=== PATIENT | male | born 1960 | race Caucasian/White ===

== ENCOUNTER 2016-08-17 20:47 | Emergency (ER) | payer MEDICARE, MEDICAID, OTHER ==
[2016-08-17] MEDS ORDERED: Aspirin 81 MG Tab.Chew PO ONE (21:35)
--- NOTE | 2016-08-17 21:35 | EDM.PDOC ---
ED HPI Trauma - General Chief Complaint: Upper Extremity Injury/Pain Stated Complaint: PT HAS UPPER BODY PAIN Time Seen by Provider: 08/17/16 20:59 Source: Reports: Patient History Limitations: Reports: No limitations - History of Present Illness INITIAL COMMENTS - FREE TEXT/NARRATIVE: HISTORY AND PHYSICAL: History of present illness: [56-year-old male with a history of chronic gastroesophageal reflux disease which patient states he got his "nerve cut "to reduce the acid, is with a history of tobacco abuse and hypertension with which he is noncompliant with his propranolol. Patient now presents emergent [facility] complaining of upper back pain earlier today which is typical for his chronic upper back pain. Patient was uncomfortable and stated is worse with movement palpation and movement of his neck he has no headache or stiff neck no fevers chills sweats or shaking chills. Patient has no productive cough peptic patient decided to come to the emergency department he perceived that the back pain "wrapped around the front," radiating to his chest. Patient states the pain is worse with taking a deep breath and movement. He says it is sometimes sharp. He denies exertional chest pain nausea vomiting diaphoresis or shortness of air beyond his baseline is a smoker. Less stress test was 1998 which was unremarkable. She states his pain is an " of 9. " He does not have a history of high cholesterol, diabetes, or family history of coronary artery disease Review of systems: As per history of present illness and below otherwise all systems reviewed and negative. Past medical history: As per history of present illness and as reviewed below otherwise noncontributory. Surgical history: As per history of present illness and as reviewed below otherwise noncontributory. Social history: No reported history of drug or alcohol abuse. Family history: As per history of present illness and as reviewed below otherwise noncontributory. Physical exam: HEENT: Atraumatic, normocephalic, pupils reactive, negative for conjunctival pallor or scleral icterus, mucous membranes moist, throat clear, neck supple, nontender, trachea midline. Lungs: Clear to auscultation, breath sounds equal bilaterally, chest nontender. Heart: S1S2, regular, negative for clicks, rubs, or JVD. Abdomen: Soft, nondistended, nontender. Negative for masses or hepatosplenomegaly. Negative for costovertebral tenderness. Pelvis: Stable nontender. Genitourinary: Deferred. Rectal: Deferred. Extremities: Atraumatic, negative for cords or calf pain. Neurovascular unremarkable. Neuro: Awake, alert, oriented. Cranial nerves II through XII unremarkable. Cerebellum unremarkable. Motor and sensory unremarkable throughout. Exam nonfocal. Diagnostics: [] Therapeutics: [] Impression: [] Plan: [] Definitive disposition and diagnosis as appropriate pending reevaluation and review of above. Allergies/ADRs: Allergies codeine Allergy (Verified 01/11/15 08:48) Cannot Remember Home Medications: Ambulatory Orders Diclofenac Sodium [Voltaren] 1 tab PO ASDIRECTED 10/02/14 [Confirmed 01/11/15] Allopurinol [Zyloprim] 100 mg PO DAILY 08/17/16 [Confirmed 08/17/16] Carisoprodol 1 tab PO TID 08/17/16 [Confirmed 08/17/16] Colchicine 0.6 mg PO DAILY 08/17/16 [Confirmed 08/17/16] Past Medical History - Past Health History Medical/Surgical History: Denies Medical/Surgical History HEENT History: Reports: Other (see below) Other HEENT History: on eye glasses Cardiovascular History: Reports: None Respiratory History: Reports: None Gastrointestinal History: Reports: None, Other (see below) Other Gastrointestinal History: perforated ulcer Genitourinary History: Reports: None Musculoskeletal History: Reports: Back pain, chronic, Gout Neurological History: Reports: None Psychiatric History: Reports: Anxiety, Depression Endocrine/Metabolic History: Reports: None Hematologic History: Reports: None Immunologic History: Reports: None Oncologic (Cancer) History: Reports: None Dermatologic History: Reports: None - Infectious Disease History Infectious Disease History: Reports: None Social & Family History - Family History Family Medical History: Noncontributory - Tobacco Use Smoking Status *Q: Current Some Day Smoker Years of Tobacco use: 30 Packs/Tins Daily: 1 - Caffeine Use Caffeine Use: Reports: Soda - Alcohol Use Days Per Week of Alcohol Use: 0 - Recreational Drug Use Recreational Drug Use: No Review of Systems - Review of Systems Review Of Systems: See Below (Per history of present illness) Trauma Exam - Physical Exam Exam: See Below (Per history of present illness) Course - Vital Signs Text/Narrative:: Signs and symptoms consistent with exacerbation of chronic back pain with tenderness of the upper back reproducible with palpation. Patient also has tenderness of the back of both shoulders and posterior bilateral neck. No bony tenderness or midline tenderness of the C-spine. He is nonfocal neurologically and has no evidence of radiculopathy of the upper extremities. Patient clearly describing a pleuritic component to the "chest pain "that radiated from his back which did not appear until he was on his way to the emergency department. he has no infectious prodrome. Patient is well-appearing. EKG with normal sinus rhythm at 74 normal axis no STEMI. His EKG is unremarkable. CTA of the chest unremarkable except for 5 pulmonary nodules the largest of which is 6 mm. Patient aware of critical importance of followup for repeat imaging which can your pressure device primary care DrFilippo to rule out evolving cancer. Remainder of full workup unremarkable and patient's clinical history is completely consistent with pleurisy superimposed on his chronic upper back pain. Patient and agree with outpatient followup. Strict return precautions given Last Recorded V/S: Last Vital Signs Temp 36.2 C 08/18/16 01:28 Pulse 78 08/18/16 01:28 Resp 16 08/18/16 01:28 BP 151/88 H 08/18/16 01:28 Pulse Ox 98 08/18/16 01:28 - Orders/Labs/Meds Orders: Active Orders 24 hr Category Date Time Status EKG 12 Lead [EKG Documentation Completion] [RC] STAT Care 08/17/16 21:29 Active CTA Chest W WO Contrast [Ang Chest] [CT] Stat Exams 08/17/16 22:40 Taken Chest 1V Frontal [CR] Stat Exams 08/17/16 21:30 Taken Labs: Laboratory Tests 08/17/16 08/17/16 08/17/16 Range/Units 21:43 21:43 21:43 Hgb 14.0 (13.0-17.0) g/dL Hct 42.6 (38.0-50.0) % Sodium 143 (136-146) mmol/L Potassium 4.0 (3.5-5.1) mmol/L Chloride 109 (98-110) mmol/L Carbon Dioxide 28 (21-31) mmol/L BUN 16 (6.0-23.0) mg/dL Creatinine 1.0 (0.6-1.5) mg/dL Est Cr Clr Drug Dosing 85.17 mL/min Estimated GFR (MDRD) > 60.0 ml/min Glucose 111 H (60-110) mg/dL Calcium 8.9 (8.8-10.8) mg/dL Total Bilirubin 0.4 (0.1-1.5) mg/dL AST 18 (5-40) IU/L ALT 12 (8-54) IU/L Alkaline Phosphatase 76 (40-150) Troponin I < 0.10 (0.0-0.29) NG/ML Total Protein 7.0 (6.0-8.0) g/dL Albumin 4.0 (3.5-5.0) g/dL Globulin 3.0 (2.0-3.5) g/dL Albumin/Globulin Ratio 1.3 (1.3-2.8) Meds: Medications Discontinued Medications Generic Name Dose Route Start Last Admin Trade Name Freq PRN Reason Stop Dose Admin Aspirin 324 mg 08/17/16 21:35 08/17/16 21:49 Aspirin PO 08/17/16 21:36 324 mg ONETIME ONE Administration Al Hydroxide/Mg Hydroxide 15 0 ml 08/17/16 23:06 08/17/16 23:24 ml/ Lidocaine HCl 5 ml PO 08/17/16 23:07 1 each ONETIME ONE Administration Iopamidol 50 ml 08/17/16 22:55 08/18/16 00:07 Isovue-370 (76%) IV 08/17/16 22:56 50 ml ONETIME STA Administration Departure - Departure Time of Disposition: 00:57 Disposition: Home, Self-Care 01 Condition: good Clinical Impression: Upper back pain, chronic, Pleuritic chest pain, Gastritis, Pulmonary nodules/ lesions, multiple Instructions: Gastritis, Adult, [id number], Back Pain, Adult, Nonspecific Chest Pain Referrals: PCP,None [Primary Care Provider] - Forms: ED Department Discharge Additional Instructions: Your pain today is consistent with an attack of your chronic back pain combined with pleuritic chest pain. Pleuritic pain is from irritation of the lung lining. Pleurisy is defined as sharp pain typically stabbing and momentary with deep inspiration. Your CT angiogram of the chest was unremarkable and showed no blood clot in your lung or aortic abnormality. Your cardiac workup was negative today however, since you have not had a stress test since 1998, it is recommended that you follow up with your DrFilippo to arrange an elective outpatient stress test as soon as possible. Continue medications for your gastritis and reflux as previously prescribed and take ibuprofen 800 mg every 6 hours as needed for your upper back pain and pleurisy. You can also add Tylenol to this regimen as needed. Follow up with your doctor in the morning and return immediately for new severe or worsening symptoms Your CAT scan of the chest shows incidental findings and a 5 small pulmonary nodules. The largest of these is 6 mm. Follow up with your Dr. to discuss the specifics of this result and to arrange repeat imaging at the appropriate time frame to rule out an evolving mass in the possibility of cancer. - My Orders Last 24 Hours: My Active Orders 08/17/16 21:29 EKG 12 Lead [EKG Documentation Completion] [RC] STAT 08/17/16 21:30 Chest 1V Frontal [CR] Stat 08/17/16 22:40 CTA Chest W WO Contrast [Ang Chest] [CT] Stat - Assessment/Plan Last 24 Hours: My Active Orders 08/17/16 21:29 EKG 12 Lead [EKG Documentation Completion] [RC] STAT 08/17/16 21:30 Chest 1V Frontal [CR] Stat 08/17/16 22:40 CTA Chest W WO Contrast [Ang Chest] [CT] Stat
[2016-08-17 22:12] LABS: CHLORIDE,CL 109 mmol/L (98-110); SODIUM,NA 143 mmol/L (136-146)
[2016-08-17] MEDS ORDERED: Iopamidol 755 MG/ML 50 ML Bottle IV STA (22:55)
[2016-08-17] MEDS ORDERED: Alum Hydrox/Mag Hydrox/Simeth 15 ML, Lidocaine 2% 5 ML PO ONE ×2 (23:06)
[2016-08-18 01:35] VITALS: BP 151/88
--- NOTE | 2016-08-18 14:54 | CR ---
EXAM DATE: 08/17/16 PATIENT'S AGE: 56 Patient: FRANCO TENA Facility: [place], [place] Site . Site : 1960 Study: XRay Chest [id number]/21/2017 10:03:40 PM Ordering Physician: Nitin Sarkar Final Report: Indication: Chest pain Technique: Chest 1 view. Comparison: July 28, 2013 Findings: Cardiovascular and mediastinum: Heart size and vasculature are normal in caliber and appearance. Mediastinum is within normal limits. Lungs and pleural space: Lungs are clear. No sign of infiltrate or mass. No sign of pleural effusion. No pneumothorax. Bones and soft tissues: Epigastric surgical clips noted. Impression: No sign of acute disease. Dictated by Felicia Teresa MD @ Aug 17 2016 10:20PM (Electronic Signature) Report Signed by Proxy and Original Signed Document filed in the Medical Record. [facility]
--- NOTE | 2016-08-18 14:56 | CT ---
EXAM DATE: 08/17/16 PATIENT'S AGE: 56 Patient: FRANCO TENA Facility: [place], [place] Site . Site : 1960 Study: CT Chest Angio [id number]/22/2017 12:07:06 AM Ordering Physician: Nitin Final Report: INDICATION: Pleuritic chest pain TECHNIQUE: CT chest pulmonary PE protocol acquired with 50 cc IV contrast. COMPARISON: Chest radiograph from the same date FINDINGS: Cardiovascular structures: Normal vascular enhancement of the pulmonary arteries , no sign of pulmonary embolism. Heart size is normal. No sign of aneurysm or dissection in the thoracic aorta. Mediastinum and tate: No mass or adenopathy. Lungs: Minimal emphysematous changes. 0.2 cm pulmonary nodule in the left lower lobe, best seen on image 137 series 401 0.6 cm pulmonary nodule right upper lobe best seen on image 86 series 401 0.5 centimeter right upper lobe pulmonary nodule, best seen on image 166 0.3 centimeter nodule right upper lobe best seen on image 196 0.4 centimeter pulmonary nodule right upper lobe best seen on image 243. Pleura and pericardium: No effusions. Chest wall and axilla: No mass or adenopathy. Upper abdomen: Surgical justin near the gastroesophageal junction. 1.9 cm left adrenal gland nodule. Cholelithiasis. Bones: No significant findings. IMPRESSION: 1. No pulmonary embolism, aortic dissection, or pneumonia. 2. Multiple pulmonary nodules. Correlation with any history of malignancy recommended. Followup per Fleischner society guidelines recommended, as listed below. 3. Left adrenal gland nodule. Adrenal CT or MRI is recommended for further characterization. 4. Cholelithiasis. FLEISCHNER SOCIETY GUIDELINES SOLID NODULES: LOW RISK nodule < 6 mm: No follow-up needed. nodule = 6-8 mm: Initial follow-up CT at 6-12 months and then at 18-24 months if no change. nodule < 8 mm: Follow-up CTs at around 3, 9, and 24 months. Dynamic contrast- enhanced CT, PET, and/or biopsy. MULTIPLE LOW RISK: nodule < 6 mm: No follow-up needed. nodule = 6-8 mm: CT at 3-6 months, then consider CT at 18-24 months. nodule < 8 mm: CT at 3-6 months, then consider CT at 18-24 months. HIGH RISK nodule < 6 mm: Follow-up at 12 months. If no change, no further imaging needed. nodule = 6-8 mm: Initial follow-up CT at 3-6 months and then at 9-12 and 24 months if no change. nodule < 8 mm: Follow-up CTs at around 3, 9, and 24 months. Dynamic contrast- enhanced CT, PET, and/or biopsy. MULTIPLE HIGH RISK: nodule < 6 mm: Optional CT at 12 months. nodule = 6-8 mm: CT at 3-6 months, then at 18-24 months. nodule < 8 mm: CT at 3-6 months, then at 18-24 months. Dictated by Felicia Teresa MD @ Aug 18 2016 12:07AM (Electronic Signature) Report Signed by Proxy and Original Signed Document filed in the Medical Record. [facility]
== END 2016-08-18 01:35 | disposition home or self-care (01) ==
LOC: MW.ED 20:47
DX: M54.6 Pain in thoracic spine (principal); F41.8 Other specified anxiety disorders; G89.29 Other chronic pain; R09.1 Pleurisy; K29.70 Gastritis, unspecified, without bleeding; R91.8 Other nonspecific abnormal finding of lung field; F17.200 Nicotine dependence, unspecified, uncomplicated; Z88.8 Allergy status to other drugs, medicaments and biological substances; Z79.899 Other long term (current) drug therapy
CPT/HCPCS: 36415; 71010; 71275; 80053; 84484; 85014; 85018; 93005; 99285; A9270; Q9967; 99284

== ENCOUNTER → 2016-10-15 | Outpatient (CLI) | payer MEDICARE, MEDICAID, OTHER ==
[~2016-10-15] MED LIST: Iopamidol 755 MG/ML 500 ML Multipack Bottle IVPUSH STA
--- NOTE | 2016-10-15 11:25 | CT ---
EXAMINATION: CT chest and abdomen with contrast HISTORY: Disorder of lung, adrenal nodule COMPARISON: CT chest dated 08/17/2016 lungs are clear without focal consolidation. TECHNIQUE: Axial CT images obtained through the chest and abdomen following the administration 100 m L of Isovue-370 in the right middle fossa. FINDINGS: No pleural effusion or pneumothorax. Mild dependent atelectasis. The most part the previou sly demonstrated pulmonary nodules have resolved. There is a small residual pleural-based nodule tyrel suring 4 mm within the right upper lobe, previously measuring 5 mm. There is a 2 mm nodule in the ri ght upper lobe on image 36 of series 302. The heart is normal in size without a pericardial effusion . Thoracic aorta is normal in caliber. The main and central pulmonary arteries are patent. The centr al airways are clear. Nonpathologically enlarged mediastinal and hilar lymph nodes are noted. No axi llary lymphadenopathy. Clips are noted near the gastroesophageal junction. The previously demonstrated left adrenal nodule measures less than 10 Hounsfield units and has washed out characteristics of an adenoma. There is a small nonobstructing stone within the lower pole of the left kidney. Cholelithiasis without evidence of cholecystitis. There is a tiny cyst within the left hepatic lobe. The spleen and pancreas otherw ise appear normal. No bulky retroperitoneal lymphadenopathy. No suspicious osseous amount is identified. IMPRESSION: 1. Several of the previously demonstrated pulmonary nodules have resolved. However a few small resid ual under noted. Follow-up in 12 months if the patient has known risk factors. 2. Left adrenal adenoma. 3. Cholelithiasis without evidence of cholecystitis. 4. Nonobstructing left nephrolithiasis.
== END ==
LOC: MW.DI 08:45
PROVIDERS: ATTEND Physician Assistant
DX: J98.4 Other disorders of lung (principal); R19.09 Other intra-abdominal and pelvic swelling, mass and lump; R91.8 Other nonspecific abnormal finding of lung field; D35.02 Benign neoplasm of left adrenal gland; K80.20 Calculus of gallbladder without cholecystitis without obstruction; N20.0 Calculus of kidney
CPT/HCPCS: 71260; 74160; Q9967

== ENCOUNTER 2017-02-01 19:08 | Emergency (ER) | payer MEDICARE, MEDICAID, OTHER ==
--- NOTE | 2017-02-01 20:46 | EDM.PDOC ---
ED HPI GENERAL MEDICAL PROBLEM - General Chief Complaint: Abdominal Pain Stated Complaint: LOWER LT ABDOMINAL PAIN Time Seen by Provider: 02/01/17 20:41 Source of Information: Reports: Patient. Denies: Family, Shelter Records History Limitations: Reports: No Limitations - History of Present Illness INITIAL COMMENTS - FREE TEXT/NARRATIVE: History of present illness: [56-year-old male presenting with complaints of left lower quadrant pain. Patient indicates that it has been off and on for the last few days for discomfort progressively worse and while self-limiting it gets to where he feels dizzy and he might pass out and/or nauseated to the point of feeling the need to vomit.] Review of systems: As per history of present illness and below otherwise all systems reviewed and negative. Past medical history: As per history of present illness and as reviewed below otherwise noncontributory. Surgical history: As per history of present illness and as reviewed below otherwise noncontributory. Social history: No reported history of drug or alcohol abuse. Family history: As per history of present illness and as reviewed below otherwise noncontributory. Physical exam: HEENT: Atraumatic, normocephalic, pupils reactive, negative for conjunctival pallor or scleral icterus, mucous membranes moist, throat clear, neck supple, nontender, trachea midline. Lungs: Clear to auscultation, breath sounds equal bilaterally, chest nontender. Heart: S1S2, regular, negative for clicks, rubs, or JVD. Abdomen: Soft, nondistended, nontender. Negative for masses or hepatosplenomegaly. Negative for costovertebral tenderness. Pelvis: Stable nontender. Genitourinary: Deferred. Rectal: Deferred. Extremities: Atraumatic, negative for cords or calf pain. Neurovascular unremarkable. Neuro: Awake, alert, oriented. Cranial nerves II through XII unremarkable. Cerebellum unremarkable. Motor and sensory unremarkable throughout. Exam nonfocal. Global assessment is benign on presentation save the subjective complaint as noted in the history of present illness. Patient does indicate that the pain had discontinued approximately 20 minutes prior to physical assessment. Patient also indicates this is not abnormal the pain comes and is exquisite 8/10 to the point he feels his breath taken away and without intervention it will self resolve. He acknowledges that this presentation in of itself is quite annoying. Diagnostics: [CBC, CMP, amylase, lipase] Therapeutics: [] Impression: [Abdominal pain] Plan: [Referral to surgery] Definitive disposition and diagnosis as appropriate pending reevaluation and review of above. LLQ/L flank Pain Score (Numeric/FACES): 2 - Related Data Allergies Allergy/AdvReac Type Severity Reaction Status Date / Time codeine Allergy Cannot Verified 02/01/17 20:11 Remember Home Meds: Home Meds . [No Known Home Meds] 02/01/17 [History] Past Medical History - Past Health History Medical/Surgical History: Denies Medical/Surgical History HEENT History: Reports: Other (See Below) Other HEENT History: on eye glasses Cardiovascular History: Reports: None Respiratory History: Reports: Other (See Below) Other Respiratory History: 38yr smoker Gastrointestinal History: Reports: None Other Gastrointestinal History: perforated ulcer Genitourinary History: Reports: None Musculoskeletal History: Reports: Back Pain, Chronic, Gout Neurological History: Reports: None Psychiatric History: Reports: Anxiety, Depression Endocrine/Metabolic History: Reports: None Hematologic History: Reports: None Immunologic History: Reports: None Oncologic (Cancer) History: Reports: Other (See Below) Other Oncologic History: pt reports 7 nodes on lungs Dermatologic History: Reports: None - Infectious Disease History Infectious Disease History: Reports: Chicken Pox Social & Family History - Family History Family Medical History: Noncontributory - Tobacco Use Smoking Status *Q: Heavy Tobacco Smoker Years of Tobacco use: 38 Packs/Tins Daily: 1 - Caffeine Use Caffeine Use: Reports: Soda - Alcohol Use Days Per Week of Alcohol Use: 0 - Recreational Drug Use Recreational Drug Use: No ED ROS GENERAL - Review of Systems Review Of Systems: See Below (See history of present illness) ED EXAM, GI/ABD - Physical Exam Exam: See Below (History of present illness) Course - Vital Signs Last Recorded V/S: Last Vital Signs Temp 36.9 C 02/01/17 20:11 Pulse 79 02/01/17 20:11 Resp 18 02/01/17 20:11 BP 140/90 02/01/17 20:11 Pulse Ox 98 02/01/17 20:11 - Orders/Labs/Meds Labs: Laboratory Tests 02/01/17 02/01/17 Range/Units 21:11 21:11 WBC 10.45 (4.0-11.0) K/uL RBC 4.36 L (4.50-5.90) M/uL Hgb 14.1 (13.0-17.0) g/dL Hct 43.2 (38.0-50.0) % MCV 99.1 H (80.0-98.0) fL MCH 32.3 H (27.0-32.0) pg MCHC 32.6 (31.0-37.0) g/dL RDW Std Deviation 55.7 (28.0-62.0) fl RDW Coeff of [place] 15 (11.0-15.0) % Plt Count 273 (150-400) K/uL MPV 10.30 (7.40-12.00) fL Neut % (Auto) 81.2 H (48.0-80.0) % Lymph % (Auto) 10.5 L (16.0-40.0) % [place] % (Auto) 6.9 (0.0-15.0) % Eos % (Auto) 1.0 (0.0-7.0) % Baso % (Auto) 0.4 (0.0-1.5) % Neut # (Auto) 8.5 H (1.4-5.7) K/uL Lymph # (Auto) 1.1 (0.6-2.4) K/uL [place] # (Auto) 0.7 (0.0-0.8) K/uL Eos # (Auto) 0.1 (0.0-0.7) K/uL Baso # (Auto) 0.0 (0.0-0.1) K/uL Nucleated RBC % 0.0 /100WBC Nucleated RBCs # 0 K/uL Sodium 142 (136-146) mmol/L Potassium 4.1 (3.5-5.1) mmol/L Chloride 109 (98-110) mmol/L Carbon Dioxide 23 (21-31) mmol/L BUN 13 (6.0-23.0) mg/dL Creatinine 0.8 (0.6-1.5) mg/dL Est Cr Clr Drug Dosing 106.46 mL/min Estimated GFR (MDRD) > 60.0 ml/min Glucose 112 H (60-110) mg/dL Calcium 9.5 (8.8-10.8) mg/dL Total Bilirubin 0.6 (0.1-1.5) mg/dL AST 25 (5-40) IU/L ALT 28 (8-54) IU/L Alkaline Phosphatase 85 (40-150) Total Protein 7.0 (6.0-8.0) g/dL Albumin 4.0 (3.5-5.0) g/dL Globulin 3.0 (2.0-3.5) g/dL Albumin/Globulin Ratio 1.3 (1.3-2.8) Amylase 43 (10-90) U/L Lipase 29 (7-80) U/L Departure - Departure Time of Disposition: 22:03 Disposition: Home, Self-Care 01 Condition: Good Clinical Impression: Abdominal pain - Discharge Information Instructions: Abdominal Pain, Adult, [id number] Referrals: PCP,None [Primary Care Provider] - Forms: ED Department Discharge Additional Instructions: The following information is given to patients seen in the emergency department who are being discharged to home. This information is to outline your options for follow-up care. We provide all patients seen in our emergency department with a follow-up referral. The need for follow-up, as well as the timing and circumstances, are variable depending upon the specifics of your emergency department visit. If you don't have a primary care physician on staff, we will provide you with a referral. We always advise you to contact your personal physician following an emergency department visit to inform them of the circumstance of the visit and for follow-up with them and/or the need for any referrals to a consulting specialist. The emergency department will also refer you to a specialist when appropriate. This referral assures that you have the opportunity for follow-up care with a specialist. All of these measure are taken in an effort to provide you with optimal care, which includes your follow-up. Under all circumstances we always encourage you to contact your private physician who remains a resource for coordinating your care. When calling for follow-up care, please make the office aware that this follow-up is from your recent emergency room visit. If for any reason you are refused follow-up, please contact the [facility] Emergency Department at and asked to speak to the emergency department charge nurse. Take medication as directed Follow-up with your primary care provider on as already scheduled Follow-up with surgery as directed Return to ED as needed as discussed
[2017-02-01 21:54] LABS: CHLORIDE,CL 109 mmol/L (98-110); SODIUM,NA 142 mmol/L (136-146)
[2017-02-01 22:10] VITALS: BP 128/79
== END 2017-02-01 22:18 | disposition home or self-care (01) ==
LOC: MW.ED 19:08
DX: R10.32 Left lower quadrant pain (principal); F32.9 Major depressive disorder, single episode, unspecified; F17.210 Nicotine dependence, cigarettes, uncomplicated; Z88.5 Allergy status to narcotic agent
CPT/HCPCS: 36415; 80053; 82150; 83690; 85025; 99283; 99284

== ENCOUNTER 2019-05-30 09:17 | Emergency (ER) | payer MEDICARE, OTHER, MEDICAID ==
[2019-05-30] MEDS ORDERED: Sodium Chloride 0.9% 1,000 ML IV ONE (10:16)
--- NOTE | 2019-05-30 10:47 | CR ---
INDICATION: Constipation since prostate surgery 6 days ago TECHNIQUE: Abdomen/Pelvis radiograph 2 views COMPARISON: None FINDINGS: Bowel: The bowel gas pattern is normal without evidence of bowel obstruction. Soft tissue: No evidence of pneumoperitoneum present. Two phleboliths present left pelvis. Surgical clips are noted near the GE junction. Bone: Unremarkable for age. IMPRESSION: 1. Unremarkable appearance of the visualized abdomen. Dictated by Devin Rich MD @ 05/30/2019 10:45:18 AM Dictated by: Devin Rich MD @ 05/30/2019 10:45:25 (Electronically Signed)
[2019-05-30 10:51] LABS: BLOOD UREA NITROGEN,BUN 16 mg/dL (7.0-18.0); CARBON DIOXIDE,CO2 26.3 mmol/L (21.0-32.0); CHLORIDE,CL 101 mmol/L (98-107); GLUCOSE RANDOM 115 mg/dL (74-106); POTASSIUM,K 4.2 mmol/L (3.5-5.1); SODIUM,NA 136 mmol/L (136-148)
[2019-05-30] MEDS ORDERED: Levofloxacin 250 MG Tab PO ONE (11:33)
--- NOTE | 2019-05-30 11:40 | EDM.PDOC ---
ED [facility] GENERAL MEDICAL PROBLEM - General Chief Complaint: Genitourinary Problem Stated Complaint: PROSTATE ISSUES Time Seen by Provider: 05/30/19 09:34 - History of Present Illness INITIAL COMMENTS - FREE TEXT/NARRATIVE: HPI 59-year-old male with history of colon cancer presents POD 6 with concern for dysuria (pain at his urethral meatus at the termination of avoiding sensation) following an apparently laparoscopic/robotic prostatectomy with lymph node biopsy performed in [facility]. Patient reports that he has stool since his surgery. Patient denies fevers chills. Patient notes that he has had blood around his catheter as urethral meatus for approximately 4 days which is attempted cleaned with hydrogen peroxide. Patient denies fevers or chills. Patient has not spoken with his surgeon. Patient is taking oxycodone and is only taken 2 doses of MiraLAX in the last 6 days. M/S/F/SocHx notable for: please see HPI; remainder reviewed with patient and in chart. ROS: Negative constitutional, eye, cardiovascular, pulmonary, GI, , MSK, skin , neurologic, psychiatric, endocrine unless noted in the HPI. Exam Gen: Pleasant, non-toxic appearing, resting comfortably. HEENT: NC, AT, PEERL, EOMI. Resp: Clear to auscultation bilaterally, normal work of breathing, no accessory muscle usage. Card: Regular rate and rhythm with no murmurs, rubs, or gallops, extremities warm and well perfused. GI: Non-tender to palpation throughout all quadrants, no focal tenderness at McBurney's point, negative Berumen's sign, non-distended, no rebound or guarding. : No suprapubic tenderness to palpation. Visually normal male external genitalia, no urethral meatus excoriation or bleeding. MSK: No visible deformities, strength and tone without visually appreciable deficit. Skin: Normal color with no visible lesions. Neuro: alert and oriented 3, no facial asymmetry, vision and hearing WNL. Psych: Mood and affect appropriate. Labs / Imaging: WBC 9.5, HB 13.9, sodium 139, potassium 4.2, creatinine 1.0. UA large occult blood, negative nitrate, trace leukocyte esterase, 6-8 WBCs, few epithelial cells, few bacteria. KUB: unremarkable appearance of the visualized abdomen. MDM Previous chart, nursing note, labs, imaging, and vitals reviewed. A: 59-year-old male with history of colon cancer presents POD 6 with concern for dysuria (pain at his urethral meatus at the termination of avoiding sensation) following an apparently laparoscopic/robotic prostatectomy with lymph node biopsy performed in [facility]. Evaluation: UA and history concerning for UTI,. Due to concern for Castañeda catheter obstruction his catheter was gently irrigated with good return. Patient is benign abdominal exam, labs are within normal limits, KUB without evidence of acute abnormalities. Offered ED treatment of the patients constipation, patient declined and will pursue treatment home treatment with suppositories, enema, and MiraLAX as needed. Patient instructed to contact surgeon by phone tomorrow. Requested records from [facility], these were not available throughout the patients ED course. At time of discharge the patient notes a is taking unknown pills, review indicates that the patient is taking Bactrim as infection prophylaxis, patient recommended to continue taking this as prescribed. Impression: hematuria, dysuria, constipation. Only when i feel the urge to void Pain Score (Numeric/FACES): 8 - Related Data Allergies Allergy/AdvReac Type Severity Reaction Status Date / Time codeine Allergy Cannot Verified 05/30/19 09:34 Remember Home Meds: Home Meds Sulfamethoxazole/Trimethoprim [Sulfamethoxazole-Tmp Ds Tablet] 1 each PO [History] Past Medical History - Past Health History Medical/Surgical History: Denies Medical/Surgical History HEENT History: Reports: Other (See Below) Other HEENT History: on eye glasses Cardiovascular History: Reports: None Respiratory History: Reports: Other (See Below) Other Respiratory History: 38yr smoker Gastrointestinal History: Reports: None Other Gastrointestinal History: perforated ulcer Genitourinary History: Reports: None Musculoskeletal History: Reports: Back Pain, Chronic, Gout Neurological History: Reports: None Psychiatric History: Reports: Anxiety, Depression Endocrine/Metabolic History: Reports: None Hematologic History: Reports: None Immunologic History: Reports: None Oncologic (Cancer) History: Reports: Other (See Below) Other Oncologic History: pt reports 7 nodes on lungs, prostate CA Dermatologic History: Reports: None - Infectious Disease History Infectious Disease History: Reports: Chicken Pox Social & Family History - Family History Family Medical History: Noncontributory - Tobacco Use Smoking Status *Q: Current Every Day Smoker Years of Tobacco use: 38 Packs/Tins Daily: 0.5 - Caffeine Use Caffeine Use: Reports: Soda - Recreational Drug Use Recreational Drug Use: No ED ROS GENERAL - Review of Systems Review Of Systems: See Below ED EXAM, GENERAL - Physical Exam Exam: See Below Course - Vital Signs Last Recorded V/S: Last Vital Signs Temp 35.8 C 05/30/19 09:30 Pulse 90 05/30/19 09:30 Resp 16 05/30/19 09:30 BP 149/100 H 05/30/19 09:30 Pulse Ox 98 05/30/19 09:30 - Orders/Labs/Meds Orders: Active Orders 24 hr Category Date Time Status CULTURE URINE [RM] Stat Lab 05/30/19 09:47 Received levoFLOXacin [Levaquin] Med 05/30/19 11:33 Once 250 mg PO ONETIME ONE Labs: Laboratory Tests 05/30/19 05/30/19 05/30/19 Range/Units 09:47 10:22 10:22 WBC 9.25 (4.0-11.0) K/uL RBC 4.29 L (4.50-5.90) M/uL Hgb 13.9 (13.0-17.0) g/dL Hct 41.4 (38.0-50.0) % MCV 96.5 (80.0-98.0) fL MCH 32.4 H (27.0-32.0) pg MCHC 33.6 (31.0-37.0) g/dL RDW Std Deviation 54.3 (28.0-62.0) fl RDW Coeff of Rozina 15 (11.0-15.0) % Plt Count 222 (150-400) K/uL MPV 9.80 (7.40-12.00) fL Neut % (Auto) 68.1 (48.0-80.0) % Lymph % (Auto) 17.1 (16.0-40.0) % [place] % (Auto) 9.0 (0.0-15.0) % Eos % (Auto) 5.4 (0.0-7.0) % Baso % (Auto) 0.4 (0.0-1.5) % Neut # (Auto) 6.3 H (1.4-5.7) K/uL Lymph # (Auto) 1.6 (0.6-2.4) K/uL [place] # (Auto) 0.8 (0.0-0.8) K/uL Eos # (Auto) 0.5 (0.0-0.7) K/uL Baso # (Auto) 0.0 (0.0-0.1) K/uL Nucleated RBC % 0.0 /100WBC Nucleated RBCs # 0 K/uL Sodium 136 (136-148) mmol/L Potassium 4.2 (3.5-5.1) mmol/L Chloride 101 (98-107) mmol/L Carbon Dioxide 26.3 (21.0-32.0) mmol/L BUN 16 (7.0-18.0) mg/dL Creatinine 1.0 (0.8-1.3) mg/dL Est Cr Clr Drug Dosing 76.54 mL/min Estimated GFR (MDRD) > 60.0 ml/min Glucose 115 H (74-106) mg/dL Calcium 8.9 (8.5-10.1) mg/dL Urine Color YELLOW Urine Appearance CLOUDY Urine pH 6.0 (5.0-8.0) Ur Specific Curran >= 1.030 (1.001-1.035) Urine Protein 100 H (NEGATIVE) mg/dL Urine Glucose (UA) NEGATIVE (NEGATIVE) mg/dL Urine Ketones NEGATIVE (NEGATIVE) mg/dL Urine Occult Blood LARGE H (NEGATIVE) Urine Nitrite NEGATIVE (NEGATIVE) Urine Bilirubin SMALL H (NEGATIVE) Urine Ictotest NEGATIVE Urine Urobilinogen 4.0 H (<2.0) EU/dL Ur Leukocyte Esterase TRACE H (NEGATIVE) Urine RBC TOO NUMEROUS TO CT (0-2/HPF) Urine WBC 6-8 (0-5/HPF) Ur Epithelial Cells FEW (NONE-FEW) Urine Bacteria FEW (NEGATIVE) Urine Mucus LIGHT (NONE-MOD) Meds: Medications Discontinued Medications Generic Name Dose Route Start Last Admin Trade Name Freq PRN Reason Stop Dose Admin Sodium Chloride 1,000 mls @ 1,000 mls/hr 05/30/19 10:16 05/30/19 10:27 Normal Saline IV 05/30/19 11:15 1,000 mls/hr .Bolus ONE Administration Departure - Departure Time of Disposition: 11:37 Disposition: Home, Self-Care 01 Clinical Impression: UTI, Urinary tract infectious disease - Discharge Information Referrals: Nikko Díaz MD [Primary Care Provider] - Additional Instructions: You were in seen in the Emergency Department for evaluation of pain on urination, blood in your urine and around your penis, as well as constipation. With respect your constipation please read and follow all the instructions below for home treatment. Please contact your urologist and surgeon tomorrow by phone for further care. Please read and follow all of the instructions below. Please follow up with your primary care physician as needed. When calling for follow-up care, please make the office aware that this follow-up is from your recent emergency room visit. If for any reason you are refused follow-up, please contact the Emergency Department at and asked to speak to the emergency department charge nurse. Your care today was limited to identifying and treating emergent medical problems only. Many people have subtle differences in their test results that require follow up with their outpatient physician(s) to correctly determine if this represents a normal variation or concerning abnormality with respect to your specific health. The care given to you today was limited to identifying and treating emergent medical problems - you need to request a copy of all of your medical records from today's visit and follow up with your outpatient physician(s) to review both today's visit and your overall health. If you have any new symptoms or if you are at all concerned about your health please return immediately to the emergency department. Constipation Home Treatment 1. Give yourself to suppositories, wait 30 minutes give yourself two enemas as below. 2. Give yourself two over the counter Fleet Enemas. 3. Take miralax 17g or 1 cap with 8 oz of fluid once and continue every 4 hours until clear stool. Then take 17g per day. Take your miralax as prescribed for 1 week and then adjust the dose to normal stooling (1-2 bowel movements per day). 4. One tablespoon psyllium fiber (e.g. Metamucil, Konsyl, or store brands) twice a day in an 8 oz glass of water. Please ensure adequate hydration by drinking approximately 60 ounces of fluid per day. If you are eating significantly less than normal please use Gatoraide or a similar sports drink with sodium/salt and sugar to avoid electrolyte abnormalities. Contact your primary care physician or return to the Emergency Department if the symptoms do not improve or worsen (fever greater than 101F, increased nausea or vomiting, blood in the in the vomit or stool, inability to eat drink and/or urinate in greater than 12 hours, severe abdominal pain, or any other concerning symptoms). Please contact the Emergency Department if there are any questions or concerns. If no problems in the meantime please schedule an appointment to see your primary care physician within 3 days. Obtaining primary care: 1. [facility] provides pediatrics (children), family medicine (children, adults, and some obstetrical care), and internal medicine (adults). Further specialty care is also available. Same day appointments are available. They may be contacted at [phone] and are open Tuesday through Tuesday 8 AM to 5 PM. The [facility] are located at [facility], [address] [place] [address]. 2. [facility] offers family medicine, internal medicine, womens health, and further specialty care. [facility] may be contacted at [phone]. [facility] is located at [address] [facility] [address]. 3. If you have health insurance, please also contact your insurer for a list of accepting providers under your policy, you may contact these providers for further health care. Occupational health: Work related injuries may consider following up with [facility], . Occupational health services are located at [address] [place] [address] and are open Tuesday through Tuesday from 7: 30 am to 5:00 pm. Obstetrical and Gynecological Care: [facility], , Tuesday through Tuesday 8 AM to 5 PM[address] [place] [address]. Eyecare: If you have an eye injury you should follow up with your delinquent account clerk or with [facility], at [phone] or [phone] , they are located at [address] [place], [place] [address]. Dental Care Jerod Escalante DDS. [address] [facility].[place], [place]. Ph. [phone] Eze Juliaimani Boris DDS MS. [address] [facility] [address], [place], [place]. Ph. Rivera Celio Shannon DDS. 10 05/[address] [place] [address]. Ph. [phone] Juan Pete DDS. [address] [facility] [address] [place], [place]. Ph. [phone] Steve Forrest DDS PC. [address] [facility] [address] [place], [place]. Ph. [phone] Hema Hong DDS. [address] [facility]. Ph. [phone] [facility]. [address] [place], [place]. Ph. [phone] [facility]. [address] [place] [address], [place], [place]. Ph. [phone] [facility] [address] [place] [address]. Ph. [phone] [facility]. [address] [place] [address] [address] [place], [place]. Ph. [facility]. [address] [place], [place]. Ph. [phone] High Blood Pressure (Hypertension) When you were in the emergency department you had an abnormally high blood pressure. High blood pressure can be without symptoms. However high blood pressure can lead to many medical problems including kidney disease, strokes, and heart attacks. Your blood pressure may have been elevated due to pain or the stress of being in the emergency department, however half of people with an elevated blood pressure in the emergency department have mcfp problems with high blood pressure. Please see your primary care physician in 2-3 days for a repeat check of your blood pressure. This may help prevent many health serious problems in the future. Please return to the emergency department if you develop any of the following: chest pain, shortness of breath, new or severe headache, changes in vision or hearing, weakness, or if you are otherwise concerned about your health. Sepsis Event Note - Evaluation Sepsis Screening Result: No Definite Risk - Focused Exam Vital Signs: Vital Signs Temp Pulse Resp BP Pulse Ox 05/30/19 09:30 35.8 C 90 16 149/100 H 98 Date Exam was Performed: 05/30/19 Time Exam was Performed: 11:36 - My Orders Last 24 Hours: My Active Orders 05/30/19 09:47 CULTURE URINE [RM] Stat 05/30/19 11:33 levoFLOXacin [Levaquin] 250 mg PO ONETIME ONE - Assessment/Plan Last 24 Hours: My Active Orders 05/30/19 09:47 CULTURE URINE [RM] Stat 05/30/19 11:33 levoFLOXacin [Levaquin] 250 mg PO ONETIME ONE
[2019-05-30 11:52] VITALS: BP 138/80; PULSE 64
== END 2019-05-30 11:52 | disposition home or self-care (01) ==
LOC: MW.ED 09:17
DX: N39.0 Urinary tract infection, site not specified (principal); F17.210 Nicotine dependence, cigarettes, uncomplicated; K59.00 Constipation, unspecified
CPT/HCPCS: 36415; 51700; 74018; 80048; 81001; 85025; 87086; 96360; 99283; J7030

== ENCOUNTER 2019-07-02 13:12 | Emergency (ER) | payer MEDICARE, OTHER ==
--- NOTE | 2019-07-02 13:46 | EDM.PDOC ---
ED HPI GENERAL MEDICAL PROBLEM - General Chief Complaint: General Stated Complaint: RADIATING PAIN SINCE SURGERY. Time Seen by Provider: 07/02/19 13:37 Source of Information: Reports: Patient History Limitations: Reports: No Limitations - History of Present Illness INITIAL COMMENTS - FREE TEXT/NARRATIVE: HISTORY AND PHYSICAL: History of present illness: Patient is a 59-year-old male who presents to the emergency room with complaints of groin, testicular and boom-rectal discomfort 2 weeks post surgery. Patient had a prostatectomy on 05/24/2019 by his urologist, Dr Vidya Fried from [facility]. Patient states he has colon/prostate cancer and will be starting radiation with his next coming appointment July 16, 2019. He states approximately 2 to 3 weeks ago he was seen in our emergency room for similar symptoms (testicular and groin pain) and at that time had a Castañeda catheter in place and was treated with Bactrim for a UTI. He just finished his antibiotic yesterday and states him symptoms have not improved. He currently is on narcotic pain medication for his symptoms, although states these have not been helping. Increased pain with pressure, such as sitting down. His main concern is the pain he has in the perirectal/testicular and bilateral groin area. He does complain of diffuse dysuria and penile pain. Patient denies any fever, chills, headache, change in vision, syncope or near syncope. Denies any chest pain, back pain, shortness of breath or cough. Denies any nausea, vomiting , diarrhea, constipation. Has not noted any blood in urine or stool. Patient has been eating and drinking appropriately. Review of systems: As per history of present illness and below otherwise all systems reviewed and negative. Past medical history: As per history of present illness and as reviewed below otherwise noncontributory. Surgical history: As per history of present illness and as reviewed below otherwise noncontributory. Social history: See social history for further information Family history: As per history of present illness and as reviewed below otherwise noncontributory. Physical exam: General: Well-developed and well-nourished 59-year-old male. Alert and oriented. Nontoxic-appearing and in no acute distress. HEENT: Atraumatic, normocephalic, pupils equal and reactive bilaterally, negative for conjunctival pallor or scleral icterus, mucous membranes moist, trachea midline. No drooling or trismus noted. No meningeal signs. No hot potato voice noted. Lungs: Clear to auscultation, breath sounds equal bilaterally, chest nontender. Heart: S1S2, regular rate and rhythm without overt murmur Abdomen: Soft, nondistended, nontender. See SKIN for details. Negative for masses. Negative for costovertebral tenderness. Pelvis: Stable nontender. Genitourinary/Rectal: No lesions, redness, or soft tissue swelling is noted. No hernias are appreciated. Mild pain with palpation of bilateral testes. Rectal done gently with consent - good rectal tone with no evidence of fluctuance suggesting an abscess. Skin: Lower abdominal incisions which are free of infection and nontender with palpation. Intact, warm, dry. No lesions or rashes noted. Extremities: Atraumatic, moves all extremities per self without difficulty or deficits, negative for cords or calf pain. Neurovascular unremarkable. Neuro: Awake, alert, oriented. Cranial nerves II through XII unremarkable. Cerebellum unremarkable. Motor and sensory unremarkable throughout. Exam nonfocal. Notes: US of scrotum and testes show a left sided varicocele. Small right sided hydrocele. No intratesticular abnormality. CT shows multiple small calcified gallstones noted in the gallbladder. No abscess or perirectal abscess noted. I did call Dr Fried, [facility], about this patient as she is the one who recommend he come in. She is aware of all the diagnostic results. She would like to hold off on any antibiotic administration until the culture has returned. She does recommend that this patient be started on gabapentin and he may continue taking the pain medication he has available to him at home. This information was shared with the patient. Encouraged him to keep his appointment he has next week with urology. Supportive care measures were reviewed and discussed. Voices understanding and is agreeable to plan of care. Denies any further questions or concerns at this time. Diagnostics: CBC, CMP, UA, Testicular US, Abd/Pelvis CT Therapeutics: NS Prescription: Gabapentin 300mg BID (#60) Impression: Groin Pain Dysuria Plan: 1. Make sure you are drinking plenty of fluids and taking a Colace if needed to make sure you are having regular bowel movements while taking these pain medications. We want to avoid constipation. 2. Urine culture has been added, we may call you if antibiotics are needed. 3. Follow with Corky as we discussed. Definitive disposition and diagnosis as appropriate pending reevaluation and Groin Pain Score (Numeric/FACES): 2 - Related Data Allergies Allergy/AdvReac Type Severity Reaction Status Date / Time codeine Allergy Cannot Verified 05/30/19 09:34 Remember Home Meds: Home Meds Gabapentin [Neurontin] 300 mg PO BID #60 cap 07/02/19 [Rx] oxyCODONE HCl/Acetaminophen [Oxycodone-Acetaminophen 5-325] 1 each PO ASDIRECTED 07/02/19 [History] Past Medical History - Past Health History Medical/Surgical History: Denies Medical/Surgical History HEENT History: Reports: Other (See Below) Other HEENT History: on eye glasses Cardiovascular History: Reports: None Respiratory History: Reports: Other (See Below) Other Respiratory History: 38yr smoker Gastrointestinal History: Reports: None Other Gastrointestinal History: perforated ulcer Genitourinary History: Reports: None Musculoskeletal History: Reports: Back Pain, Chronic, Gout Neurological History: Reports: None Psychiatric History: Reports: Anxiety, Depression Endocrine/Metabolic History: Reports: None Hematologic History: Reports: None Immunologic History: Reports: None Oncologic (Cancer) History: Reports: Other (See Below) Other Oncologic History: pt reports 7 nodes on lungs, prostate CA Dermatologic History: Reports: None - Infectious Disease History Infectious Disease History: Reports: Chicken Pox, Measles, Mumps - Past Surgical History Male Surgical History: Reports: Prostatectomy Social & Family History - Family History Family Medical History: Noncontributory - Tobacco Use Smoking Status *Q: Current Every Day Smoker Years of Tobacco use: 40 Packs/Tins Daily: 1 - Caffeine Use Caffeine Use: Reports: Coffee - Recreational Drug Use Recreational Drug Use: No ED ROS GENERAL - Review of Systems Review Of Systems: Comprehensive ROS is negative, except as noted in HPI. ED EXAM, GENERAL - Physical Exam Exam: See Below (See dictation) Course - Vital Signs Last Recorded V/S: Last Vital Signs Temp 98.1 F 07/02/19 13:25 Pulse 84 07/02/19 13:25 Resp 16 07/02/19 13:25 BP 144/86 H 07/02/19 13:25 Pulse Ox 97 07/02/19 13:25 - Orders/Labs/Meds Orders: Active Orders 24 hr Category Date Time Status CULTURE URINE [RM] Stat Lab 07/02/19 14:00 Received Labs: Laboratory Tests 07/02/19 07/02/19 07/02/19 Range/Units 14:00 14:00 14:00 WBC 7.81 (4.0-11.0) K/uL RBC 4.56 (4.50-5.90) M/uL Hgb 14.8 (13.0-17.0) g/dL Hct 44.7 (38.0-50.0) % MCV 98.0 (80.0-98.0) fL MCH 32.5 H (27.0-32.0) pg MCHC 33.1 (31.0-37.0) g/dL RDW Std Deviation 50.7 (28.0-62.0) fl RDW Coeff of [place] 14 (11.0-15.0) % Plt Count 215 (150-400) K/uL MPV 9.80 (7.40-12.00) fL Neut % (Auto) 59.0 (48.0-80.0) % Lymph % (Auto) 26.0 (16.0-40.0) % [place] % (Auto) 8.6 (0.0-15.0) % Eos % (Auto) 5.9 (0.0-7.0) % Baso % (Auto) 0.5 (0.0-1.5) % Neut # (Auto) 4.6 (1.4-5.7) K/uL Lymph # (Auto) 2.0 (0.6-2.4) K/uL [place] # (Auto) 0.7 (0.0-0.8) K/uL Eos # (Auto) 0.5 (0.0-0.7) K/uL Baso # (Auto) 0.0 (0.0-0.1) K/uL Nucleated RBC % 0.0 /100WBC Nucleated RBCs # 0 K/uL Sodium 145 (136-148) mmol/L Potassium 4.2 (3.5-5.1) mmol/L Chloride 108 H (98-107) mmol/L Carbon Dioxide 30.3 (21.0-32.0) mmol/L BUN 14 (7.0-18.0) mg/dL Creatinine 1.1 (0.8-1.3) mg/dL Est Cr Clr Drug Dosing 70.98 mL/min Estimated GFR (MDRD) > 60.0 ml/min Glucose 63 L (74-106) mg/dL Calcium 9.0 (8.5-10.1) mg/dL Total Bilirubin 0.2 (0.2-1.0) mg/dL AST 16 (15-37) IU/L ALT 20 (14-63) IU/L Alkaline Phosphatase 97 (46-116) U/L Total Protein 7.8 (6.4-8.2) g/dL Albumin 3.9 (3.4-5.0) g/dL Globulin 3.9 (2.6-4.0) g/dL Albumin/Globulin Ratio 1.0 (0.9-1.6) Urine Color YELLOW Urine Appearance CLEAR Urine pH 6.0 (5.0-8.0) Ur Specific [place] >= 1.030 (1.001-1.035) Urine Protein TRACE H (NEGATIVE) mg/dL Urine Glucose (UA) NEGATIVE (NEGATIVE) mg/dL Urine Ketones TRACE H (NEGATIVE) mg/dL Urine Occult Blood NEGATIVE (NEGATIVE) Urine Nitrite NEGATIVE (NEGATIVE) Urine Bilirubin NEGATIVE (NEGATIVE) Urine Urobilinogen 1.0 (<2.0) EU/dL Ur Leukocyte Esterase TRACE H (NEGATIVE) Urine RBC 0-2 (0-2/HPF) Urine WBC 5-10 (0-5/HPF) Ur Epithelial Cells RARE (NONE-FEW) Calcium Oxalate Crystal FEW (NEGATIVE) Urine Bacteria FEW (NEGATIVE) Meds: Medications Discontinued Medications Generic Name Dose Route Start Last Admin Trade Name Trellq PRN Reason Stop Dose Admin Sodium Chloride 1,000 mls @ 999 mls/hr 07/02/19 13:50 07/02/19 14:38 Normal Saline IV 07/02/19 14:50 999 mls/hr STAT ONE Administration Iopamidol 100 ml 07/02/19 15:26 07/02/19 15:27 Isovue Multipack-370 (76%) IVPUSH 07/02/19 15:27 100 ml ONETIME ONE Administration Departure - Departure Time of Disposition: 16:15 Disposition: Home, Self-Care 01 Clinical Impression: Bilateral groin pain, Dysuria - Discharge Information Prescriptions: Gabapentin [Neurontin] 300 mg PO BID #60 cap Instructions: Acute Pain, Adult, Radical Prostatectomy, Care After Referrals: Efe Weems MD [Primary Care Provider] - Forms: ED Department Discharge Additional Instructions: The following information is given to patients seen in the emergency department who are being discharged to home. This information is to outline your options for follow-up care. We provide all patients seen in our emergency department with a follow-up referral. The need for follow-up, as well as the timing and circumstances, are variable depending upon the specifics of your emergency department visit. If you don't have a primary care physician on staff, we will provide you with a referral. We always advise you to contact your personal physician following an emergency department visit to inform them of the circumstance of the visit and for follow-up with them and/or the need for any referrals to a consulting specialist. The emergency department will also refer you to a specialist when appropriate. This referral assures that you have the opportunity for follow-up care with a specialist. All of these measure are taken in an effort to provide you with optimal care, which includes your follow-up. Under all circumstances we always encourage you to contact your private physician who remains a resource for coordinating your care. When calling for follow-up care, please make the office aware that this follow-up is from your recent emergency room visit. If for any reason you are refused follow-up, please contact the [facility] at and asked to speak to the emergency department charge nurse. [facility] [address] [place] [id number] [facility] [address] [place] [id number] 1. Make sure you are drinking plenty of fluids and taking a Colace if needed to make sure you are having regular bowel movements while taking these pain medications. We want to avoid constipation. 2. Urine culture has been added, we may call you if antibiotics are needed. 3. Follow with Corky as we discussed. Sepsis Event Note - Evaluation Sepsis Screening Result: No Definite Risk - Focused Exam Vital Signs: Vital Signs Temp Pulse Resp BP Pulse Ox 02/03/20 13:25 98.1 F 84 16 144/86 H 97 Date Exam was Performed: 07/02/19 Time Exam was Performed: 16:16 - My Orders Last 24 Hours: My Active Orders 07/02/19 14:00 CULTURE URINE [RM] Stat - Assessment/Plan Last 24 Hours: My Active Orders 07/02/19 14:00 CULTURE URINE [RM] Stat
[2019-07-02] MEDS ORDERED: Sodium Chloride 0.9% 1,000 ML IV ONE (13:50)
[2019-07-02 14:36] LABS: BLOOD UREA NITROGEN,BUN 14 mg/dL (7.0-18.0); CARBON DIOXIDE,CO2 30.3 mmol/L (21.0-32.0); CHLORIDE,CL 108 mmol/L (98-107); GLUCOSE RANDOM 63 mg/dL (74-106); POTASSIUM,K 4.2 mmol/L (3.5-5.1); SODIUM,NA 145 mmol/L (136-148)
--- NOTE | 2019-07-02 15:24 | US ---
Testicular ultrasound: Multiple real-time images of the testicles were obtained. Comparison: No prior testicular imaging. Testicles have a homogeneous ultrasound appearance. Small right sided hydrocele is noted. Both arterial and venous blood flow are seen within the testicles. Left sided varicocele is noted. Measurements: Right testicle: 3.1 x 1.8 x 2.3 cm Left testicle: 3.2 x 1.6 x 2.2 cm Impression: 1. Left sided varicocele. 2. Small right-sided hydrocele. 3. No intratesticular abnormality is seen. Diagnostic code #3 This report was dictated in [place] Standard Time MTDD
[2019-07-02] MEDS ORDERED: Iopamidol 755 MG/ML 200 ML Multipack Bottle IVPUSH ONE (15:26)
--- NOTE | 2019-07-02 15:57 | CT ---
CT abdomen and pelvis Technique: Multiple axial sections were obtained from above the dome of the diaphragm inferiorly through the pubic symphysis. Intravenous contrast was utilized. No oral contrast was given. Comparison: Prior CT abdomen exam of [address] abdomen and pelvis study of 04/30/19. Findings: No definite fluid collections to suggest perirectal abscess. Other findings: Visualized lung bases show nothing acute. Liver contains no focal abnormality. Spleen appears within normal limits. Adrenal glands show no nodule. Kidneys show symmetric contrast enhancement without hydronephrosis or mass. Left adrenal nodule is seen measuring 1.7 cm in size. This adrenal nodule is stable from previous studies. Right adrenal gland is unremarkable. Pancreas shows no discrete abnormality. Kidneys show symmetric contrast enhancement without hydronephrosis or mass. Gallbladder shows multiple small calcified gallstones. Aorta shows atherosclerotic calcification without aneurysm. No retroperitoneal adenopathy or mesenteric abnormalities are seen. No pelvic mass or adenopathy is seen. No free fluid or inflammatory change is appreciated. Bone window settings were reviewed which appears within normal limits for the patient's age. Appendix is seen and believed to be normal in size. Impression: 1. Stable left adrenal nodule which is felt to be benign. 2. Multiple small calcified gallstones within the gallbladder. 3. No findings of perirectal abscess. Diagnostic code #3 This report was dictated in [place] Standard Time
[2019-07-02 16:27] VITALS: BP 150/94; PULSE 66
== END 2019-07-02 16:27 | disposition home or self-care (01) ==
LOC: MW.ED 13:12
DX: R30.0 Dysuria (principal); R10.31 Right lower quadrant pain; R10.32 Left lower quadrant pain; I86.1 Scrotal varices; N43.3 Hydrocele, unspecified; F17.210 Nicotine dependence, cigarettes, uncomplicated; Z88.5 Allergy status to narcotic agent
CPT/HCPCS: 36415; 74177; 76870; 80053; 81001; 85025; 87086; 93976; 96360; 99284; J7030; Q9967

== ENCOUNTER 2022-08-09 12:58 | Day surgery (SDC) | payer MEDICARE, MEDICAID, OTHER ==
[~2022-08-09 12:58] MED LIST changes: -Iopamidol 755 MG/ML 500 ML Multipack Bottle IVPUSH STA; +Lactated Ringers 1,000 ML IV SCH
[2022-08-09] MEDS ORDERED: Lidocaine 2% 5 ML SDV ONE (13:33)
[2022-08-09] MEDS ORDERED: fentaNYL 100 MCG/2 ML SDV ONE (13:34)
[2022-08-09] MEDS ORDERED: Propofol 200 MG/20 ML SDV ONE ×2 (13:34→14:14)
[2022-08-09] MEDS ORDERED: Lactated Ringers 1,000 ML IV SCH (14:45)
[2022-08-09 15:00] VITALS: BP 131/82; PULSE 56
== END 2022-08-09 15:18 | disposition home or self-care (01) ==
LOC: MW.SDS 12:58
PROVIDERS: ATTEND Surgery
DX: Z12.11 Encounter for screening for malignant neoplasm of colon (principal); D12.2 Benign neoplasm of ascending colon; D12.8 Benign neoplasm of rectum; K29.50 Unspecified chronic gastritis without bleeding; K29.00 Acute gastritis without bleeding; K20.90 Esophagitis, unspecified without bleeding; K57.30 Diverticulosis of large intestine without perforation or abscess without bleeding; J38.3 Other diseases of vocal cords; C61 Malignant neoplasm of prostate; F17.200 Nicotine dependence, unspecified, uncomplicated; Z87.11 Personal history of peptic ulcer disease; Z80.0 Family history of malignant neoplasm of digestive organs; Z88.5 Allergy status to narcotic agent; Z83.71 Family history of colonic polyps; Z98.890 Other specified postprocedural states
CPT/HCPCS: 43239; 45380; J2704; J3010; J7120; 00813; 88305; 88342; J3490

== ENCOUNTER 2023-06-27 11:26 | Emergency (ER) | payer MEDICAID, MEDICARE ==
[2023-06-27] MEDS ORDERED: Alum Hydro/Mag Hydro/Simeth XS 15 ML, Lidocaine 2% 5 ML PO ONE ×2 (11:47)
[2023-06-27] MEDS ORDERED: Acetaminophen 500 MG Tab PO ONE (11:47)
[2023-06-27] MEDS ORDERED: Famotidine 20 MG/2 ML SDV IVPUSH ONE (11:47)
[2023-06-27] MEDS ORDERED: Sodium Chloride 0.9% 10 ML Syringe FLUSH PRN (11:47)
[2023-06-27] MEDS ORDERED: Sodium Chloride 0.9% 2.5 ML Syringe FLUSH PRN (11:47)
[2023-06-27 12:03] LABS: BASOPHILS ABSOLUTE AUTO 0.05 K/uL (0.00-0.20); BASOPHILS PERCENT AUTO 0.8 % (0.0-1.0); EOSINOPHILS ABSOLUTE AUTO 0.19 K/uL (0.00-0.45); EOSINOPHILS PERCENT AUTO 2.9 % (0.0-6.0); HEMATOCRIT 38.6 % (42.0-52.0); HEMOGLOBIN 12.8 g/dL (14.0-18.0); IMMATURE GRAN ABSOLUTE AUTO 0.01 K/uL (0.00-0.05); IMMATURE GRAN PERCENT AUTO 0.2 % (0.0-0.4); LYMPHOCYTES ABSOLUTE AUTO 2.12 K/uL (1.00-4.80); LYMPHOCYTES PERCENT AUTO 32.2 % (24.0-44.0); MEAN CORPUSCULAR HEMOGLOBIN 30.3 pg (28.0-32.0); MEAN CORPUSCULAR HGB CONC 33.2 g/dL (32.0-36.0); MEAN CORPUSCULAR VOLUME 91.3 fL (83.0-99.0); MEAN PLATELET VOLUME 9.9 fL (9.4-12.4); MONOCYTES PERCENT AUTO 10.6 % (0.0-8.0); NEUTROPHILS ABSOLUTE AUTO 3.51 K/uL (1.80-7.70); NEUTROPHILS PERCENT AUTO 53.3 % (41.0-71.0); PLATELET COUNT,PLT 208 K/uL (150-400); RED BLOOD CELL COUNT 4.23 M/uL (4.52-5.90); WHITE BLOOD CELL COUNT,WBC 6.58 K/uL (3.9-11.3)
[2023-06-27 12:16] LABS: A/G RATIO 0.9 (0.9-1.6); ALBUMIN 3.5 g/dL (3.4-5.0); BILIRUBIN TOTAL 0.6 mg/dL (0.2-1.0); CALCIUM 8.7 mg/dL (8.5-10.1); CREATININE 1.1 mg/dL (0.8-1.3); EST CRCL DRUG DOSING (CG) 75.44 mL/min; POTASSIUM,K 3.8 mmol/L (3.5-5.1); PROTEIN TOTAL,TP 7.2 g/dL (6.4-8.2)
[2023-06-27 13:52] LABS: APPEARANCE,URINE CLEAR; COLOR,URINE YELLOW; GLUCOSE,URINE NEGATIVE (NEGATIVE); KETONES,URINE NEGATIVE (NEGATIVE); LEUKOCYTE ESTERASE,URINE NEGATIVE (NEGATIVE); NITRITE,URINE NEGATIVE (NEGATIVE); OCCULT BLOOD,URINE NEGATIVE (NEGATIVE); PH,URINE 5.5 (5.0-8.0); PROTEIN,URINE NEGATIVE (NEGATIVE)
[2023-06-27 13:58] LABS: BILIRUBIN,URINE SMALL (NEGATIVE); RBC,URINE 0-2 (0-2/HPF); WBC,URINE 0-2 (0-5/HPF)
[2023-06-27 13:59] LABS: BACTERIA,URINE FEW (NEGATIVE); CALCIUM OXALATE CRYSTALS,URINE FEW (NEGATIVE); EPITHELIAL CELLS,URINE NOT SEEN (NONE-FEW); MUCUS,URINE MODERATE (NONE-MOD)
[2023-06-27 17:49] VITALS: BP 135/86; PULSE 70
== END 2023-06-27 14:39 | disposition home or self-care (01) ==
LOC: MW.ED 11:26
DX: R10.13 Epigastric pain (principal); I10 Essential (primary) hypertension; K21.9 Gastro-esophageal reflux disease without esophagitis; Z79.899 Other long term (current) drug therapy; Z88.5 Allergy status to narcotic agent
CPT/HCPCS: 36415; 71045; 80053; 81001; 83690; 83880; 84484; 85025; 93005; 96374; 99285; A9270; J3490; 93010; 99284

== ENCOUNTER 2024-06-16 03:46 | Emergency (ER) | payer MEDICARE, OTHER ==
[2024-06-16 04:09] LABS: BASOPHILS ABSOLUTE AUTO 0.06 K/uL (0.00-0.20); EOSINOPHILS ABSOLUTE AUTO 0.45 K/uL (0.00-0.45); EOSINOPHILS PERCENT AUTO 7.2 % (0.0-6.0); HEMATOCRIT 38.9 % (42.0-52.0); HEMOGLOBIN 12.7 g/dL (14.0-18.0); IMMATURE GRAN ABSOLUTE AUTO 0.02 K/uL (0.00-0.05); IMMATURE GRAN PERCENT AUTO 0.3 % (0.0-0.4); LYMPHOCYTES PERCENT AUTO 22.4 % (24.0-44.0); MEAN CORPUSCULAR HEMOGLOBIN 30.2 pg (28.0-32.0); MEAN CORPUSCULAR HGB CONC 32.6 g/dL (32.0-36.0); MEAN CORPUSCULAR VOLUME 92.4 fL (83.0-99.0); MEAN PLATELET VOLUME 9.7 fL (9.4-12.4); MONOCYTES ABSOLUTE AUTO 0.53 K/uL (0.00-0.80); MONOCYTES PERCENT AUTO 8.5 % (0.0-8.0); NEUTROPHILS ABSOLUTE AUTO 3.79 K/uL (1.80-7.70); NEUTROPHILS PERCENT AUTO 60.6 % (41.0-71.0); PLATELET COUNT,PLT 187 K/uL (150-400); RED BLOOD CELL COUNT 4.21 M/uL (4.52-5.90); WHITE BLOOD CELL COUNT,WBC 6.25 K/uL (3.9-11.3)
[2024-06-16] MEDS: niCARdipine/Normal Saline 20 MG in Premix Bag 1 BAG IV SCH (04:17)
[2024-06-16] MEDS: Ondansetron 4 MG/2 ML SDV IVPUSH ONE (04:21)
[2024-06-16] MEDS: Sodium Chloride 3% 250 ML IV ONE (04:22)
[2024-06-16] MEDS: fentaNYL/Normal Saline 2,500 MCG in Premix Bag 1 BAG IV PRN (04:33)
[2024-06-16] MEDS: propofoL 1,000 MG/100 ML 100 ML IV SCH (04:33)
[2024-06-16] MEDS: Rocuronium 100 MG/10 ML MDV IVPUSH ONE (04:37)
[2024-06-16] MEDS: Etomidate 2 MG/ML 20 ML SDV IVPUSH ONE (04:38)
[2024-06-16 04:40] LABS: ALBUMIN 3.4 g/dL (3.4-5.0); BILIRUBIN TOTAL 0.3 mg/dL (0.2-1.0); CALCIUM 8.1 mg/dL (8.5-10.1); CARBON DIOXIDE,CO2 31.2 mmol/L (21.0-32.0); CREATININE 1.2 mg/dL (0.8-1.3); EST CRCL DRUG DOSING (CG) 64.21 mL/min; POTASSIUM,K 4.7 mmol/L (3.5-5.1); PROTEIN TOTAL,TP 6.9 g/dL (6.4-8.2)
[2024-06-16 04:44] LABS: LACTIC ACID 1.3 mmol/L (0.4-2.0)
[2024-06-16 06:33] VITALS: BP 121/78; PULSE 53
[2024-06-16 06:44] LABS: CORONAVIRUS COVID-19 NAA NEGATIVE (NEGATIVE); INFLUENZA A NAA NEGATIVE (NEGATIVE); INFLUENZA B NAA NEGATIVE (NEGATIVE); RESPIRATORY SYNCYTIAL VIR NAA NEGATIVE (NEGATIVE)
[2024-06-16 07:08] LABS: APPEARANCE,URINE CLEAR; BILIRUBIN,URINE NEGATIVE (NEGATIVE); COLOR,URINE YELLOW; GLUCOSE,URINE 100 mg/dL (NEGATIVE); KETONES,URINE NEGATIVE (NEGATIVE); LEUKOCYTE ESTERASE,URINE NEGATIVE (NEGATIVE); NITRITE,URINE NEGATIVE (NEGATIVE); OCCULT BLOOD,URINE NEGATIVE (NEGATIVE); PROTEIN,URINE NEGATIVE (NEGATIVE); UROBILINOGEN,URINE 0.2 EU/dL (<2.0)
== END 2024-06-16 06:52 | disposition other institution (70) ==
LOC: MW.ED 03:46
DX: I61.9 Nontraumatic intracerebral hemorrhage, unspecified (principal); I10 Essential (primary) hypertension; Z88.8 Allergy status to other drugs, medicaments and biological substances; Z79.899 Other long term (current) drug therapy
CPT/HCPCS: 0241U; 31500; 36415; 51702; 70450; 71045; 80053; 81003; 83605; 85025; 87040; 93005; 96365; 96366; 96368; 96375; 99291; J2405; J2704; J3490; J7131; 93010; 99292